=== PATIENT | female | born 2000 | race African-American/Black ===

== ENCOUNTER 2025-10-08 14:44 | Emergency (ER) | payer OTHER, MEDICAID ==
[~2025-10-08 14:44] MED LIST: Iopamidol-370 76% 500 ML MDV (1 ML CHARGE) ONE
[2025-10-08 15:49] LABS: Hematocrit 36.6 % (36.0-47.0); Hemoglobin 11.7 g/dL (12.0-16.0); Mean Corpuscular Hemoglobin 23.2 pg (27.0-31.0); Mean Corpuscular Volume 72.6 fL (78.0-98.0); Platelet Count 332 10x3/uL (130-400); Red Blood Cell (RBC) Count 5.04 mill/uL (4.20-5.40); White Blood Cell (WBC) Count 6.85 10x3/uL (4.8-10.8)
[2025-10-08 15:58] LABS: INR-International Normal Ratio 1.0; PTT 25.7 sec (22.9-36.1); Prothrombin Time 13.7 sec (12.0-14.7)
[2025-10-08 15:59] LABS: BHCG - Serum Negative (NEGATIVE); Pregs Control Background? CLEAR/WHITE (CLR/WHITE); Pregs Control Bar Appear? YES (CONTROL BAR)
[2025-10-08 16:01] LABS: Acetaminophen Less than 10 mcg/mL (Less than 10); Salicylate Less than 8.0 mg/dL (Less than 8.0)
[2025-10-08 16:08] LABS: ALT (SGPT) 17 U/L (Less than 34); AST (SGOT) 23 U/L (11-34); Albumin 3.3 g/dL (3.1-4.5); Alkaline Phosphatase 58 U/L (40-110); Anion Gap 12 mmol/L (10-20); BUN (Urea Nitrogen) 5 mg/dL (7.0-18.7); Bilirubin, Total 0.3 mg/dL (0.3-1.2); Calc. Creatinine Clearance 0 mL/min (70-130); Calcium 8.9 mg/dL (7.8-10.44); Carbon Dioxide 23 mmol/L (22-29); Chloride 106 mmol/L (98-107); Globulin 4.2 g/dL (2.4-3.5); Glucose 98 mg/dL (70-105); Potassium 4.0 mmol/L (3.5-5.1); Sodium 137 mmol/L (136-145)
[2025-10-08 16:10] LABS: Anisocytosis SLIGHT = 6-15 cells HPF (0-5); Macrocytosis SLIGHT = 6-15 cells HPF (0-5); Microcytosis SLIGHT = 6-15 cells HPF (0-5); Platelet Adequacy Comment Platelets Normal; Polychromasia SLIGHT = 2-3 cells HPF (0-2); Smudge Cells 8.0 %
== END 2025-10-08 18:14 | disposition home or self-care (01) ==
LOC: ERS 14:44
DX: S80.02XA Contusion of left knee, initial encounter (principal); S00.01XA Abrasion of scalp, initial encounter; R59.9 Enlarged lymph nodes, unspecified; F17.290 Nicotine dependence, other tobacco product, uncomplicated; V84.6XXA Passenger of special agricultural vehicle injured in nontraffic accident, initial encounter; M54.2 Cervicalgia
CPT/HCPCS: 70450; 71260; 72125; 74177; 80053; 80307; 83605; 84703; 85025; 85610; 85730; 90471; 90715; 93005; 96374; G0390; J3010; Q9967